=== PATIENT | male | born 1975 | race Caucasian/White ===

== ENCOUNTER 2016-11-21 23:33 | Emergency (ER) | payer MEDICARE, MEDICAID ==
[2016-11-21] MEDS ORDERED: SODIUM CHLORIDE 0.9% 1000ML 1,000 ML ONE (23:46)
[2016-11-22] MEDS ORDERED: DEXTROSE 5% 500ML 500 ML IVS PRN
--- NOTE | 2016-11-22 00:08 | ED.PDOC ---
History of Present Illness - General Chief Complaint: Diabetic Complaint Stated Complaint: low blood sugar Time Seen by Provider: 11/21/16 23:55 Source: patient, RN notes reviewed, Vital Signs reviewed, family - Friend , EMS Exam Limitations: no limitations - History of Present Illness Initial Comments: Patient brought in by EMS due to low blood sugar. He has been having frequent episodes on low blood sugar recently. He got an insulin pump and it is giving him too much insulin in the evening/night. Tontony his friend went to his house @ 21:00 and found patient unresponsive in his bed drenched with sweat and very pale. He checked his blood sugar and it was 29. He did sternal rub which made patient mad but did not fully arouse him so called EMS. Patient has been a diabetic since childhood. He uses and insulin pump and is on dialysis. He is also on transplant list for pancreas and kidney. When EMS arrived friend had gotten a little juice in patient and blood sugar was 35. EMS gave tube of glucopaste which only raised his blood sugar to 38, was unable to get IV access so gave Glucagon which brought his sugar up to 60 and he became coherent. Currently he is asymptomatic. Timing/Duration: 1-3 hours Severity: severe Improving Factors: eating - juice, other - Glucagon Worsening Factors: nothing Associated Symptoms: diaphoresis Allergies/Adverse Reactions: Allergies NO KNOWN ALLERGY Allergy (Verified 11/22/16 00:25) Home Medications: Ambulatory Orders Clonidine HCl 2 mg PO Q8HR 04/19/14 Atorvastatin Calcium [Lipitor] 10 mg PO DAILY 11/22/16 Cholecalciferol [Vitamin D3] 1,000 unit PO DAILY 11/22/16 Escitalopram [Lexapro] 20 mg PO DAILY 11/22/16 Losartan Potassium [Cozaar] 100 mg PO DAILY 11/22/16 amLODIPine BESYLATE [Norvasc] 5 mg PO DAILY 11/22/16 Review of Systems - Review of Systems Constitutional: States: diaphoresis, weakness. Denies: chills, fever EENTM: States: no symptoms reported Respiratory: States: no symptoms reported Cardiology: States: no symptoms reported Gastrointestinal/Abdominal: States: no symptoms reported Musculoskeletal: States: no symptoms reported Neurological: States: other - LOC due to low blood sugar All other Systems: No Change from Baseline Past Medical History (General) - Patient Medical History Hx Seizures: No Hx Stroke: No Hx Asthma: No Hx of COPD: No Hx Congestive Heart Failure: No Hx Pacemaker: No Hx Hypertension: Yes Hx Diabetes: Yes - IDDM Hx MRSA: No - Vaccination History Hx Tetanus, Diphtheria Vaccination: No Hx Influenza Vaccination: No Hx Pneumococcal Vaccination: No - Social History Hx Tobacco Use: No Hx Chewing Tobacco Use: No Hx Alcohol Use: No Hx Substance Use: No Hx Substance Use Treatment: No Hx Depression: No Hx Physical Abuse: No Hx Emotional Abuse: No Hx Suspected Abuse: No - Female History Patient : No Family Medical History - Family History Mother Family History: No Known Living Status: Still Living Physical Exam - Physical Exam General Appearance: Alert, Comfortable, No apparent distress, Well Developed, Well Groomed, Well Hydrated, Well Nourished Neck: non-tender, full range of motion, supple Respiratory: lungs clear, normal breath sounds, no respiratory distress, no accessory muscle use Cardiovascular/Chest: regular rate, rhythm, no edema, no gallop, no murmur Extremity: normal range of motion, non-tender, normal inspection, no pedal edema Neurologic: no motor/sensory deficits, alert, normal mood/affect, oriented x 3 Skin Exam: normal color, warm/dry Progress - Progress Progress: 11/22/16 00:41 Blood sugar is now 175. Will stop the D5W. Will recheck blood sugar @ ~01:15. If stays stable will d/c home. Patient feels fine, back to his usual self. 11/22/16 01:24 Blood sugar is now 325. Will restart insulin pump. Will d/c patient home. He is agreeable - Results/Orders Results/Orders: Laboratory Tests 11/22/16 11/22/16 00:00 00:00 WBC 5.9 RBC 3.95 L Hgb 12.2 L Hct 36.5 L MCV 92.3 MCH 30.8 MCHC 33.4 RDW 14.8 H Plt Count 223 MPV 8.7 Absolute Neuts (auto) 4.60 Absolute Lymphs (auto) 0.90 L Absolute Monos (auto) 0.30 Absolute Eos (auto) 0.10 Absolute Basos (auto) 0.00 Neutrophils % 77.7 Lymphocytes % 15.8 L Monocytes % 4.9 Eosinophils % 1.1 Basophils % 0.5 Sodium 141 Potassium 3.8 Chloride 103 Carbon Dioxide 28 Anion Gap 13.8 BUN 31 H Creatinine 5.10 H BUN/Creatinine Ratio 6.1 L Random Glucose 175 H Serum Osmolality 292.1 Calcium 9.6 Total Bilirubin 0.7 AST 19 ALT 20 Alkaline Phosphatase 116 Serum Total Protein 7.5 Albumin 4.3 Globulin 3.2 Albumin/Globulin Ratio 1.3 Departure - Departure Clinical Impression: Hypoglycemia Time of Disposition: 01:33 Disposition: Discharge to Home or Self Care Condition: Good Departure Forms: ED Discharge - Pt. Copy, Patient Portal Self Enrollment Instructions: DI for Hypoglycemia Diet: diabetic diet Activity: increase activity as tolerated Referrals: Mindy Valenzuela NP [Primary Care Provider] - 1-5 Days Home Medications: Ambulatory Orders Clonidine HCl 2 mg PO Q8HR 04/19/14 Atorvastatin Calcium [Lipitor] 10 mg PO DAILY 11/22/16 Cholecalciferol [Vitamin D3] 1,000 unit PO DAILY 11/22/16 Escitalopram [Lexapro] 20 mg PO DAILY 11/22/16 Losartan Potassium [Cozaar] 100 mg PO DAILY 11/22/16 amLODIPine BESYLATE [Norvasc] 5 mg PO DAILY 11/22/16
[2016-11-22] MEDS ORDERED: DEXTROSE 5% 1000ML 1,000 ML IVS ONE (00:09)
[2016-11-22 01:59] VITALS: BP 146/79; TEMP 98.2; O2SAT 98
== END 2016-11-22 01:50 | disposition home or self-care (01) ==
LOC: ER 23:33
DX: E11.649 Type 2 diabetes mellitus with hypoglycemia without coma (principal); I10 Essential (primary) hypertension; Z79.4 Long term (current) use of insulin; Z96.41 Presence of insulin pump (external) (internal); Z76.82 Awaiting organ transplant status; Z79.899 Other long term (current) drug therapy
CPT/HCPCS: 36415; 36416; 80053; 81001; 82948; 85025; J7060

== ENCOUNTER 2016-12-27 11:35 | Emergency (ER) | payer MEDICARE, MEDICAID ==
[2016-12-27 11:51] VITALS: TEMP 97.4; O2SAT 99
[2016-12-27 12:57] VITALS: BP 143/90
--- NOTE | 2016-12-27 13:35 | ED.PDOC ---
History of Present Illness - General Chief Complaint: Diabetic Complaint Stated Complaint: hypoglycemia, unresponsive Time Seen by Provider: 12/27/16 11:47 Source: patient, family Exam Limitations: no limitations - History of Present Illness Initial Comments: the patient is a 41-year-old male presenting to the emergency room secondary to altered mental status. The patient is ainsulin-dependent diabetic and has insulin pump. He has recently had multiple occasions where he has become hypoglycemic overnight It appears that occurred again last night and the patient was found altered this morning. He did receive an amp of D50 with EMS and came back around nicely. The patient had been feeling in his normal health until the event last night. The last time he checked his blood sugar was last night around midnight and it was within normal limits. Initial blood sugar here after the D50 was in the 160s. The patient is alert, pleasant and cooperativeand mentating well. Timing/Duration: unsure Severity: severe Improving Factors: medication Worsening Factors: nothing Associated Symptoms: diaphoresis, loss of appetite, malaise Allergies/Adverse Reactions: Allergies NO KNOWN ALLERGY Allergy (Verified 12/27/16 11:51) Home Medications: Ambulatory Orders Clonidine HCl 2 mg PO Q8HR 04/19/14 Atorvastatin Calcium [Lipitor] 10 mg PO DAILY 11/22/16 Cholecalciferol [Vitamin D3] 1,000 unit PO DAILY 11/22/16 Escitalopram [Lexapro] 20 mg PO DAILY 11/22/16 Losartan Potassium [Cozaar] 100 mg PO DAILY 11/22/16 amLODIPine BESYLATE [Norvasc] 5 mg PO DAILY 11/22/16 Review of Systems - Review of Systems Constitutional: States: diaphoresis, malaise, weakness EENTM: States: no symptoms reported Respiratory: States: no symptoms reported Cardiology: States: no symptoms reported, syncope Gastrointestinal/Abdominal: States: no symptoms reported Genitourinary: States: no symptoms reported Musculoskeletal: States: no symptoms reported Skin: States: no symptoms reported Neurological: States: other - ethargy initially Endocrine: States: excessive sweating All other Systems: No Change from Baseline Past Medical History (General) - Patient Medical History Hx Seizures: No Hx Stroke: No Hx Dementia: No Hx Asthma: No Hx of COPD: No Hx Cardiac Disorders: No Hx Congestive Heart Failure: No Hx Pacemaker: No Hx Hypertension: Yes Hx Thyroid Disease: No Hx Diabetes: Yes Hx Gastroesophageal Reflux: No Hx Renal Disease: Yes Hx Cancer: No Hx of HIV: No Hx Hepatitis C: No Hx MRSA: No - Vaccination History Hx Tetanus, Diphtheria Vaccination: Yes Hx Influenza Vaccination: Yes Hx Pneumococcal Vaccination: Yes - Social History Hx Tobacco Use: Yes Hx Chewing Tobacco Use: Yes - snuff Hx Alcohol Use: No Hx Substance Use: No Hx Substance Use Treatment: No Hx Depression: No Hx Physical Abuse: No Hx Emotional Abuse: No Hx Suspected Abuse: No - Activities of Daily Living Hospice Agency (if applicable):: None - Female History Patient is a Female of Child Bearing Age (10 -59 yrs old): No Patient : No Family Medical History - Family History Mother Family History: No Known Living Status: Still Living Physical Exam - Physical Exam General Appearance: Comfortable, No apparent distress, Lethargic - liz arrival of EMS but alert by the time he arrives here Eye Exam: bilateral normal Ears, Nose, Throat: hearing grossly normal, normal ENT inspection, normal pharynx Neck: non-tender, full range of motion Respiratory: chest non-tender, lungs clear, normal breath sounds, no respiratory distress, no accessory muscle use Cardiovascular/Chest: normal peripheral pulses, regular rate, rhythm, no edema Peripheral Pulses: radial,right: 2+, radial,left: 2+, dorsalis pedis,right: 2+, dorsalis pedis,left: 2+ Gastrointestinal/Abdominal: non tender, soft Rectal Exam: deferred Back Exam: normal inspection, no CVA tenderness, no vertebral tenderness Extremity: normal range of motion, non-tender, normal inspection, no pedal edema , normal capillary refill Neurologic: alert, normal mood/affect, oriented x 3 Skin Exam: pallor Comments: Vital Signs - 24 hr 12/27/16 12/27/16 12/27/16 11:40 12:56 13:08 Temperature 97.4 F L Pulse Rate [ 91 H 90 pulse ox] Respiratory 20 18 18 Rate Blood Pressure 181/96 143/90 [Right Arm] O2 Sat by Pulse 99 Oximetry Progress - Progress Progress: 12/27/16 13:36 the patient is a 41-year-old male presenting to the emergency room secondary to being found altered due to hypoglycemia. The patient responded well to the D50. He has tolerated oral intake well here. Repeat glucoses have been adequate. The patient is feeling much better. Due to the recurrence of his hypoglycemic episodes overnight, he has been instructed to suspend his basal insulin from when he goes to bed until he wakes up in the morning. He is to keep a diary of his blood sugar before he goes to bed and when he wakes up while doing this. He does need to discuss adjusting his insulin pump with his sales representative consultant as these hypoglycemic episodes are most certainly dangerous for him. ER warnings were given for any worsening. Well-hydrated. he needs to keep follow-up with his primary care doctor and withdialysis tomorrow. - Results/Orders Results/Orders: Laboratory Tests 12/27/16 12/27/16 12/27/16 11:50 12:10 12:10 WBC 6.5 RBC 3.89 L Hgb 12.1 L Hct 35.9 L MCV 92.2 MCH 31.1 H MCHC 33.6 RDW 14.5 Plt Count 195 MPV 8.0 Absolute Neuts (auto) 5.20 Absolute Lymphs (auto) 0.80 L Absolute Monos (auto) 0.40 Absolute Eos (auto) 0.10 Absolute Basos (auto) 0.00 Neutrophils % 79.7 H Lymphocytes % 12.4 L Monocytes % 6.0 Eosinophils % 1.4 Basophils % 0.5 Sodium 142 Potassium 3.3 L Chloride 102 Carbon Dioxide 27 Anion Gap 16.3 BUN 25 H Creatinine 4.12 H BUN/Creatinine Ratio 6.1 L POC Glucose 154 H Random Glucose 148 H Serum Osmolality 290.3 Calcium 9.2 Total Bilirubin 0.8 AST 16 ALT 12 Alkaline Phosphatase 90 Creatine Kinase 78 CK-MB (CK-2) 1.8 CK-MB (CK-2) % Not Reportable Troponin I < 0.02 Serum Total Protein 7.0 Albumin 4.3 Globulin 2.7 Albumin/Globulin Ratio 1.6 Urine Color Urine Appearance Urine pH Ur Specific [place] Urine Protein Urine Glucose (UA) Urine Ketones Urine Blood Urine Nitrite Urine Bilirubin Urine Urobilinogen Ur Leukocyte Esterase Urine RBC Urine WBC Ur Epithelial Cells Urine Bacteria Urine Mucus 12/27/16 12/27/16 13:00 13:20 WBC RBC Hgb Hct MCV MCH MCHC RDW Plt Count MPV Absolute Neuts (auto) Absolute Lymphs (auto) Absolute Monos (auto) Absolute Eos (auto) Absolute Basos (auto) Neutrophils % Lymphocytes % Monocytes % Eosinophils % Basophils % Sodium Potassium Chloride Carbon Dioxide Anion Gap BUN Creatinine BUN/Creatinine Ratio POC Glucose 222 H D Random Glucose Serum Osmolality Calcium Total Bilirubin AST ALT Alkaline Phosphatase Creatine Kinase CK-MB (CK-2) CK-MB (CK-2) % Troponin I Serum Total Protein Albumin Globulin Albumin/Globulin Ratio Urine Color Yellow Urine Appearance Clear Urine pH 7.0 Ur Specific [place] 1.025 Urine Protein >=300 H Urine Glucose (UA) 100 H Urine Ketones Negative Urine Blood Trace-intact H Urine Nitrite Negative Urine Bilirubin Negative Urine Urobilinogen 0.2 Ur Leukocyte Esterase Negative Urine RBC 1-3 Urine WBC 0-1 Ur Epithelial Cells 0 Urine Bacteria 0 Urine Mucus Small Departure - Departure Clinical Impression: Hypoglycemia due to insulin Disposition: Discharge to Home or Self Care Condition: Fair Departure Forms: ED Discharge - Pt. Copy, Patient Portal Self Enrollment Instructions: DI for Hypoglycemia Diet: diabetic diet Activity: increase activity as tolerated Referrals: Mindy Valenzuela NP [Primary Care Provider] - 1-2 Weeks Home Medications: Ambulatory Orders Clonidine HCl 2 mg PO Q8HR 04/19/14 Atorvastatin Calcium [Lipitor] 10 mg PO DAILY 11/22/16 Cholecalciferol [Vitamin D3] 1,000 unit PO DAILY 11/22/16 Escitalopram [Lexapro] 20 mg PO DAILY 11/22/16 Losartan Potassium [Cozaar] 100 mg PO DAILY 11/22/16 amLODIPine BESYLATE [Norvasc] 5 mg PO DAILY 11/22/16 Additional Instructions: the patient is a 41-year-old male presenting to the emergency room secondary to being found altered due to hypoglycemia. The patient responded well to the D50. He has tolerated oral intake well here. Repeat glucoses have been adequate. The patient is feeling much better. Due to the recurrence of his hypoglycemic episodes overnight, he has been instructed to suspend his basal insulin from when he goes to bed until he wakes up in the morning. He is to keep a diary of his blood sugar before he goes to bed and when he wakes up while doing this. He does need to discuss adjusting his insulin pump with his sales representative consultant as these hypoglycemic episodes are most certainly dangerous for him. ER warnings were given for any worsening. Well-hydrated. he needs to keep follow-up with his primary care doctor and withdialysis tomorrow.
== END 2016-12-27 13:46 | disposition home or self-care (01) ==
LOC: ER 11:35
DX: E09.649 Drug or chemical induced diabetes mellitus with hypoglycemia without coma (principal); T38.3X5A Adverse effect of insulin and oral hypoglycemic [antidiabetic] drugs, initial encounter; I10 Essential (primary) hypertension; N28.9 Disorder of kidney and ureter, unspecified; Z96.41 Presence of insulin pump (external) (internal); Z79.4 Long term (current) use of insulin; Z79.899 Other long term (current) drug therapy; Z87.891 Personal history of nicotine dependence; Y92.009 Unspecified place in unspecified non-institutional (private) residence as the place of occurrence of the external cause

== ENCOUNTER → 2017-08-05 | Outpatient (CLI) | payer MEDICARE, MEDICAID ==
--- NOTE | 2017-08-08 08:16 | RAD ---
EXAM DESCRIPTION: Chest,2 Views CLINICAL HISTORY: VIRAL INFECTION B34.9 COMPARISON: December 15, 2013 TECHNIQUE: PA/lateral FINDINGS: The lungs are well expanded and clear. No infiltrates or effusions or masses are noted. The heart is normal in size and shape with no evidence of vascular congestion. The mita and mediastinum demonstrate normal contours. The bony spine and chest wall is normal for age in appearance. IMPRESSION: Normal chest, two views Electronically signed by: Puma Chowdary MD 08/08/2017 8:15 AM [facility]
== END ==
LOC: RAD 11:56
PROVIDERS: ATTEND Internal Medicine Nephrology
DX: B34.9 Viral infection, unspecified (principal)

== ENCOUNTER 2017-08-19 14:02 | Emergency (ER) | payer MEDICARE, MEDICAID ==
[2017-08-19] MEDS ORDERED: CHLORHEXIDINE GLUCONATE 4 % 15 ML UD TOP ONE (14:08)
--- NOTE | 2017-08-19 14:18 | ED.PDOC ---
History of Present Illness - General Chief Complaint: Cardiovascular Problem Stated Complaint: BLEEDING FROM AV FISTULA LEFT ARM Time Seen by Provider: 08/19/17 14:15 Source: patient Additional Information: 41 YEAR OLD WHITE MALE BROUGHT HERE FROM DIALYSIS FOR EVALUATION OF BLEEDING FROM AV FISTULA PUNCTURE SITE FOR THE PAST FEW HOURS NOW HE HAS A CLAMP OVER IT AND NO ACTIVE BLEEDING NOTED - History of Present Illness Timing/Duration: 1 hour Severity: moderate Improving Factors: nothing Worsening Factors: nothing Associated Symptoms: denies symptoms Allergies/Adverse Reactions: Allergies NO KNOWN ALLERGY Allergy (Verified 12/27/16 11:51) Home Medications: Ambulatory Orders Clonidine HCl 2 mg PO Q8HR 04/19/14 Atorvastatin Calcium [Lipitor] 10 mg PO DAILY 11/22/16 Cholecalciferol [Vitamin D3] 1,000 unit PO DAILY 11/22/16 Escitalopram [Lexapro] 20 mg PO DAILY 11/22/16 Losartan Potassium [Cozaar] 100 mg PO DAILY 11/22/16 amLODIPine BESYLATE [Norvasc] 5 mg PO DAILY 11/22/16 Review of Systems - Review of Systems Constitutional: States: no symptoms reported EENTM: States: no symptoms reported Respiratory: States: no symptoms reported Cardiology: States: no symptoms reported Gastrointestinal/Abdominal: States: no symptoms reported Genitourinary: States: no symptoms reported Neurological: States: no symptoms reported Endocrine: States: no symptoms reported Hematologic/Lymphatic: States: no symptoms reported Past Medical History (General) - Patient Medical History Hx Seizures: No Hx Stroke: No Hx Dementia: No Hx Asthma: No Hx of COPD: No Hx Cardiac Disorders: No Hx Congestive Heart Failure: No Hx Pacemaker: No Hx Hypertension: Yes Hx Thyroid Disease: No Hx Diabetes: Yes Hx Gastroesophageal Reflux: No Hx Renal Disease: Yes Hx Cancer: No Hx of HIV: No Hx Hepatitis C: No Hx MRSA: No - Vaccination History Hx Tetanus, Diphtheria Vaccination: Yes Hx Influenza Vaccination: Yes Hx Pneumococcal Vaccination: Yes - Social History Hx Tobacco Use: Yes Hx Chewing Tobacco Use: Yes - snuff Hx Alcohol Use: No Hx Substance Use: No Hx Substance Use Treatment: No Hx Depression: No Hx Physical Abuse: No Hx Emotional Abuse: No Hx Suspected Abuse: No - Female History Patient : No Family Medical History - Family History Mother Family History: No Known Living Status: Still Living Physical Exam - Physical Exam General Appearance: Alert, Comfortable Ears, Nose, Throat: hearing grossly normal, normal ENT inspection, normal pharynx Neck: non-tender, full range of motion, supple Respiratory: chest non-tender, lungs clear, normal breath sounds, no respiratory distress, no accessory muscle use Cardiovascular/Chest: normal peripheral pulses, regular rate, rhythm, no edema, no gallop, no JVD, no murmur Gastrointestinal/Abdominal: normal bowel sounds, non tender, soft, no organomegaly Back Exam: normal inspection, no CVA tenderness, no vertebral tenderness Neurologic: reading instructor II-XII nml as tested, no motor/sensory deficits, alert, normal mood/affect, oriented x 3 Progress - Progress Progress: 08/19/17 14:21 NO ACTIVE BLEEDING WILL OBSERVE AND IF NO FURTHER BLEEDING WILL DC HOME Departure - Departure Clinical Impression: End stage chronic kidney disease Time of Disposition: 14:22 Disposition: Discharge to Home or Self Care Departure Forms: ED Discharge - Pt. Copy, Patient Portal Self Enrollment Instructions: DI for Chest Pain Diet: low salt diet Activity: increase activity as tolerated Home Medications: Ambulatory Orders Clonidine HCl 2 mg PO Q8HR 04/19/14 Atorvastatin Calcium [Lipitor] 10 mg PO DAILY 11/22/16 Cholecalciferol [Vitamin D3] 1,000 unit PO DAILY 11/22/16 Escitalopram [Lexapro] 20 mg PO DAILY 11/22/16 Losartan Potassium [Cozaar] 100 mg PO DAILY 11/22/16 amLODIPine BESYLATE [Norvasc] 5 mg PO DAILY 11/22/16
[2017-08-22 18:38] VITALS: TEMP 97.6
== END 2017-08-22 03:00 | disposition home or self-care (01) ==
LOC: ER 14:02
DX: T82.838A Hemorrhage due to vascular prosthetic devices, implants and grafts, initial encounter (principal); I12.0 Hypertensive chronic kidney disease with stage 5 chronic kidney disease or end stage renal disease; E11.22 Type 2 diabetes mellitus with diabetic chronic kidney disease; N18.6 End stage renal disease; Z99.2 Dependence on renal dialysis; Z87.891 Personal history of nicotine dependence